=== PATIENT | female | born 1975 | race African-American/Black ===

== ENCOUNTER 2017-08-31 17:11 | Emergency (ER) | payer MEDICAID ==
[2017-08-31 18:14] LABS: #Eosinphils 0.3 thou/uL (0.0-0.7); #Lymphocytes 1.9 thou/uL (1.20-3.40); #Monocytes 0.8 thou/uL (0.11-0.59); #Neutrophils 3.6 thou/uL (1.40-6.50); %Basophils 0.5 % (0.0-1.0); %Eosinophils 5.2 % (0.0-10.0); Hematocrit 32.9 % (36.0-47.0); Mean Platelet Volume 7.4 fL (7.4-10.4); Red Blood Cell (RBC) Count 3.44 mill/uL (4.20-5.40); White Blood Cell (WBC) Count 6.6 thou/uL (4.8-10.8)
[2017-08-31 18:37] LABS: ALT (SGPT) 13 U/L (8-55); AST (SGOT) 22 U/L (5-34); Acetaminophen Less than 6.0 mcg/mL (10.0-30.0); Alkaline Phosphatase 64 U/L (40-150); Anion Gap 9 mmol/L (10-20); BUN (Urea Nitrogen) 18 mg/dL (7.0-18.7); Bilirubin, Total Less than 0.2 mg/dL (0.2-1.2); CK (CPK) 978 U/L (29-168); Calc. Creatinine Clearance 0 mL/min (70-130); Calcium 9.3 mg/dL (7.8-10.44); Carbon Dioxide 27 mmol/L (22-29); Chloride 108 mmol/L (98-107); Estimated GFR-MDRD 89; Globulin 3.9 g/dL (2.4-3.5); Protein, Total 7.6 g/dL (6.0-8.3); Salicylate Less than 8.0 mg/dL (15.0-30.0)
[2017-08-31 20:40] LABS: Bilirubin Negative (Negative); Blood, Urine Moderate (Negative); Glucose, Urine (Dipstick) Negative (Negative); Ketone, Urine Negative (Negative); Nitrite Negative (Negative); Protein, Urine (Dipstick) Negative (Neg-Trace); Urobilinogen 0.2 mg/dL (0.2-1.0)
[2017-08-31 20:41] LABS: Bacteria/HPF 1+ HPF (None Seen); Hyaline Casts/LPF 0-3 HYALINE CAST LPF (0-3 Hyaline); Squamous Epithelial 0-3 HPF (0-3)
[2017-08-31 20:50] LABS: Amphetamine Not Detected (NotDetected); Methadone Not Detected (NotDetected); Methamphetamine Not Detected (NotDetected)
[2017-08-31] MEDS ORDERED: diphenhydrAMINE 25 MG CAP ONE (22:22)
== END 2017-08-31 23:26 | disposition left against medical advice (07) ==
LOC: ERS 17:11
DX: S90.512A Abrasion, left ankle, initial encounter (principal); S90.511A Abrasion, right ankle, initial encounter; L98.9 Disorder of the skin and subcutaneous tissue, unspecified; Z86.73 Personal history of transient ischemic attack (TIA), and cerebral infarction without residual deficits; X58.XXXA Exposure to other specified factors, initial encounter
CPT/HCPCS: 36415; 80053; 80306; 80307; 81003; 81015; 82550; 84443; 85025; 99283

== ENCOUNTER 2017-11-01 00:46 | Emergency (ER) | payer MEDICAID ==
[2017-11-01] MEDS ORDERED: Ibuprofen 800 MG TAB ONE (04:22)
== END 2017-11-01 04:38 | disposition home or self-care (01) ==
LOC: ERS 00:46
DX: S16.1XXA Strain of muscle, fascia and tendon at neck level, initial encounter (principal); S46.912A Strain of unspecified muscle, fascia and tendon at shoulder and upper arm level, left arm, initial encounter; S46.911A Strain of unspecified muscle, fascia and tendon at shoulder and upper arm level, right arm, initial encounter; Z86.73 Personal history of transient ischemic attack (TIA), and cerebral infarction without residual deficits; X50.9XXA Other and unspecified overexertion or strenuous movements or postures, initial encounter
CPT/HCPCS: 99283

== ENCOUNTER 2017-12-17 16:25 | Emergency (ER) | payer MEDICAID, OTHER ==
[2017-12-17 17:25] LABS: #Eosinphils 0.2 thou/uL (0.0-0.7); #Lymphocytes 1.5 thou/uL (1.20-3.40); #Monocytes 0.7 thou/uL (0.11-0.59); #Neutrophils 5.4 thou/uL (1.40-6.50); %Basophils 0.4 % (0.0-1.0); %Eosinophils 2.9 % (0.0-10.0); %Lymphocytes 19.1 % (21.0-51.0); %Monocytes 8.9 % (0.0-10.0); %Neutrophils 68.7 % (42.0-75.0); Hemoglobin 10.3 g/dL (12.0-16.0); Mean Corpuscular HGB CONC 30.9 g/dL (32.0-36.0); Mean Corpuscular Hemoglobin 28.5 pg (27.0-31.0); Mean Platelet Volume 7.6 fL (7.4-10.4); Platelet Count 262 thou/uL (130-400); RBC Distribution Width 15.3 % (11.5-14.5); Red Blood Cell (RBC) Count 3.63 mill/uL (4.20-5.40); White Blood Cell (WBC) Count 7.8 thou/uL (4.8-10.8)
[2017-12-17] MEDS ORDERED: Sterile Water 10 ML VIAL FS SCH (17:45)
[2017-12-17] MEDS ORDERED: CEFAZOLIN 1 GM VIAL IM SCH (17:45)
[2017-12-17] MEDS ORDERED: CEFAZOLIN 1 GM, Syringe 2.5 ML in Sterile Water 7.5 ML SLOW IVP SCH (17:45)
[2017-12-17 17:46] LABS: ALT (SGPT) 15 U/L (8-55); AST (SGOT) 23 U/L (5-34); Albumin 3.8 g/dL (3.5-5.0); Alkaline Phosphatase 54 U/L (40-150); Anion Gap 12 mmol/L (10-20); BUN (Urea Nitrogen) 10 mg/dL (7.0-18.7); Bilirubin, Total 0.4 mg/dL (0.2-1.2); Calc. Creatinine Clearance 0 mL/min (70-130); Calcium 8.8 mg/dL (7.8-10.44); Carbon Dioxide 21 mmol/L (22-29); Chloride 106 mmol/L (98-107); Estimated GFR-MDRD Greater than 90; Glucose 85 mg/dL (70-105); Potassium 3.7 mmol/L (3.5-5.1); Protein, Total 7.8 g/dL (6.0-8.3); Sodium 135 mmol/L (136-145)
== END 2017-12-17 18:41 | disposition home or self-care (01) ==
LOC: ERS 16:25
DX: L01.00 Impetigo, unspecified (principal); Z94.1 Heart transplant status; Z98.51 Tubal ligation status
CPT/HCPCS: 36415; 80053; 83605; 85025; 85652; 86140; 87040; 96372; A4216; J0690

== ENCOUNTER 2019-06-30 17:06 | Emergency (ER) | payer SELFPAY | END 2019-06-30 17:28 | disposition home or self-care (01) | LOC: ERS 17:06 | DX: L01.00 Impetigo, unspecified (principal); I25.2 Old myocardial infarction | CPT/HCPCS: 99283 ==

== ENCOUNTER 2019-07-05 09:50 | Emergency (ER) | payer SELFPAY | END 2019-07-05 10:42 | disposition home or self-care (01) | LOC: ERS 09:50 | DX: I87.2 Venous insufficiency (chronic) (peripheral) (principal); L03.116 Cellulitis of left lower limb; L03.115 Cellulitis of right lower limb | CPT/HCPCS: 99283 ==